=== PATIENT | female | born 1995 | race American Indian/Alaskan Native ===

== ENCOUNTER 2022-02-23 22:39 | Emergency (ER) | payer SELFPAY ==
[2022-02-24 00:08] LABS: Bilirubin,Urine NEG (Negative); Blood,Urine NEG (Negative); Color,Urine Yellow (Yellow); Protein,Urine <15 mg/dL mg/dL (Negative)
[2022-02-24 00:17] LABS: RBC,Urine < 1.0 /HPF (0.0-6.0); WBC,Urine < 1.0 /HPF (0.0-6.0)
[2022-02-24 00:18] LABS: HCG Qualitative,Urine Positive (Negative)
[2022-02-24] MEDS ORDERED: ONDANSETRON 4 MG/2 ML INJ IV ONE (01:33)
[2022-02-24] MEDS ORDERED: MORPHINE 4 MG/1 ML INJ IV ONE (01:33)
[2022-02-24 03:02] LABS: Basophils % (Auto) 0.4 % (0.0-1.8); Eosinophils # (Auto) 0.2 K/mm3 (0.0-0.4); Eosinophils % (Auto) 1.8 % (0.0-4.3); Hematocrit 37.9 % (30.3-42.9); Hemoglobin 12.2 gm/dl (10.1-14.3); Mean Corpuscular HGB Conc 32 % (30-34); Mean Corpuscular Volume 86 fl (79-97); Monocytes # (Auto) 0.9 K/mm3 (0.0-0.8); Monocytes % (Auto) 10.2 % (0.0-7.3); Platelet Count 273 K/mm3 (140-440); Red Cell Distribution Width 13.8 % (13.2-15.2)
[2022-02-24 03:37] LABS: Alanine Aminotransferase 16 units/L (7-56); Albumin 3.9 g/dL (3.9-5); Blood Urea Nitrogen 6 mg/dL (7-17); Calcium 9.5 mg/dL (8.4-10.2); Hemolysis Index 5
[2022-02-24 03:39] LABS: BUN/Creatinine Ratio 12
--- NOTE | 2022-02-24 06:22 | Vascular Lab Report ---
DUPLEX DOPPLER LOWER EXTREMITY VEINS, BILATERAL INDICATION / CLINICAL INFORMATION: DYSPNEA. TECHNIQUE: Duplex doppler imaging was performed through the veins of both lower extremities using tong ous compression and other maneuvers. COMPARISON: None available. FINDINGS: RIGHT COMMON FEMORAL VEIN: Negative. RIGHT FEMORAL VEIN: Negative. RIGHT POPLITEAL VEIN: Negative. RIGHT CALF VEINS: Negative. LEFT COMMON FEMORAL VEIN: Negative. LEFT FEMORAL VEIN: Negative. LEFT POPLITEAL VEIN: Negative. LEFT CALF VEINS: Negative. ADDITIONAL FINDINGS: None. IMPRESSION: 1. No sonographic evidence for DVT in either lower extremity. Signer Name: Josue Olson MD Signed: 02/24/2022 6:18 AM Workstation Name: [id number]
--- NOTE | 2022-02-24 06:25 | Ultrasound Report ---
ULTRASOUND OBSTETRIC COMPLETE INDICATION / CLINICAL INFORMATION: Pelvic pain: 15 weeks gestation. TECHNIQUE: Transabdominal. COMPARISON: None available. FINDINGS: NUMBER: Single PRESENTATION: breech PLACENTA: posterior and free of the os. MATERNAL ADNEXA: No significant abnormality. AMNIOTIC FLUID VOLUME: normal AMNIOTIC FLUID INDEX (AMBAR) in cm (if measured): 14.2 ANATOMY: organs (including the bladder, stomach, kidneys, heart, umbilical cord, diaphragm, cord inserti on, spine and intracranial structures) are visualized and show no significant abnormality with the fo llowing exception(s): The diaphragm and three-vessel cord/cord insertion are not well seen. MEASUREMENTS: - Biparietal Diameter = 3.58 cm = 17.0 weeks.days - Head Circumference = 12.83 cm = 16.4 weeks.days - Abdominal Circumference = 11.62 cm = 17.3 weeks.days - Femur Length = 2.20 cm = 16.4 weeks.days - Estimated Weight (in grams, if calculated): 175 - Heart Rate (beats per minute): 148 ADDITIONAL FINDINGS: None. PERCENTILE ESTIMATED WEIGHT (if calculated): 94 AVERAGE ULTRASOUND AGE (AUA) in weeks.days = 16.6 IMPRESSION: 1. Single intrauterine with AUA of 16.6 weeks.days 2. No significant sonographic abnormality. Signer Name: Josue Olson MD Signed: 02/24/2022 6:21 AM Workstation Name: [id number]
--- NOTE | 2022-02-24 07:02 | Emergency Department Report ---
ED General Adult HPI - General Chief complaint: Chest Pain Stated complaint: CHEST PAIN/15 WEEKS PREG LOWER ABDOMINAL PAIN Source: patient Mode of arrival: Ambulatory Limitations: No Limitations - History of Present Illness Initial comments: Patient is a A1 27-year-old -[place] female with no past medical history presents to the ED with complaint of acute onset persistent intermittent chest pain and tightness as well as lower abdominal pain for [address] ates that the pain in the chest is especially worse with inspiration or movement. Patient states that she recently traveled from [place] 2 weeks ago and that she plans to relocate fully in this area and not going back to [place]. Patient denies vaginal bleeding, vaginal discharge, dysuria, urinary frequency and urgency, nausea and vomiting, fever, chills, cough, sore throat, or change in vision. MD Complaint: Diffuse lower abdominal pain and chest pain -: Sudden, days(s) (2) Location: chest, abdomen (Low abdominal pain, 15 weeks gestation) Radiation: non-radiation Severity scale (0 -10): 10 Quality: aching, sharp Consistency: constant Improves with: none Worsens with: movement, other (The penetration) Associated Symptoms: denies other symptoms, chest pain, loss of appetite, malaise, nausea/vomiting, shortness of breath. denies: confusion, cough, diaphoresis, fever/chills, headaches, rash, seizure, syncope, weakness, other Treatments Prior to Arrival: none - Related Data Previous Rx's Medication Instructions Recorded Last Taken Type Acetaminophen [Tylenol] 500 mg PO Q6HR PRN #30 tablet 02/24/22 Unknown Rx Allergies Allergy/AdvReac Type Severity Reaction Status Date / Time No Known Allergies Allergy Unverified 02/23/22 22:46 ED Review of Systems ROS: Stated complaint: CHEST PAIN/15 WEEKS PREG LOWER ABDOMINAL PAIN Other details as noted in HPI Constitutional: denies: chills, fever Eyes: denies: eye pain, eye discharge, vision change ENT: denies: ear pain, throat pain Respiratory: denies: cough, shortness of breath, wheezing Cardiovascular: chest pain (Diffuse chest pain). denies: palpitations Endocrine: no symptoms reported Gastrointestinal: abdominal pain (Diffuse low abdominal pain). denies: nausea, vomiting, diarrhea, constipation, hematemesis Genitourinary: denies: urgency, dysuria, discharge Musculoskeletal: denies: back pain, joint swelling, arthralgia Skin: denies: rash, lesions Neurological: denies: headache, weakness, paresthesias Psychiatric: denies: anxiety, depression Hematological/Lymphatic: denies: easy bleeding, easy bruising ED Past Medical Hx - Past Medical History Previous Medical History?: No - Surgical History Past Surgical History?: Yes Additional Surgical History: Tonsillectomy - Medications Home Medications: Home Medications Medication Instructions Recorded Confirmed Last Taken Type Acetaminophen [Tylenol] 500 mg PO Q6HR PRN #30 tablet 02/24/22 Unknown Rx ED Physical Exam - General Limitations: No Limitations General appearance: alert, in no apparent distress - Head Head exam: Present: atraumatic, normocephalic, normal inspection - Eye Eye exam: Present: normal appearance, PERRL, EOMI Pupils: Present: normal accommodation - ENT ENT exam: Present: normal exam, normal orophraynx, mucous membranes moist, TM's normal bilaterally, normal external ear exam - Neck Neck exam: Present: normal inspection, full ROM. Absent: tenderness - Respiratory Respiratory exam: Present: normal lung sounds bilaterally, chest wall tenderness (Palpable diffuse chest wall tenderness). Absent: respiratory distress, wh eezes, rales, rhonchi - Cardiovascular Cardiovascular Exam: Present: regular rate, normal rhythm, normal heart sounds. Absent: systolic murmur, diastolic murmur, rubs, gallop - GI/Abdominal GI/Abdominal exam: Present: soft, tenderness (Palpable diffuse suprapubic tenderness), normal bowel sounds. Absent: guarding, rebound - Extremities Exam Extremities exam: Present: normal inspection, full ROM, normal capillary refill. Absent: tenderness, pedal edema, joint swelling - Back Exam Back exam: Present: normal inspection, full ROM, tenderness (Palpable lumbosacral paraspinal musculoskeletal tenderness), muscle spasm, paraspinal tenderness. Absent: CVA tenderness (L), vertebral tenderness - Neurological Exam Neurological exam: Present: alert, oriented X3, CN II-XII intact, normal gait, reflexes normal - Psychiatric Psychiatric exam: Present: normal affect, normal mood - Skin Skin exam: Present: warm, dry, intact, normal color. Absent: rash ED Course Vital Signs 02/23/22 02/23/22 22:40 22:48 Temperature 98.2 F 97.9 F Pulse Rate 98 H 94 H Respiratory 16 16 Rate Blood Pressure 133/80 Blood Pressure 116/78 [Left] O2 Sat by Pulse 100 100 Oximetry ED Medical Decision Making - Lab Data Result diagrams: 02/24/22 01:39 02/24/22 01:39 - EKG Data EKG shows normal: sinus rhythm Rate: normal - EKG Data Interpretation: normal EKG 02/24/22 07:11 The EKG shows normal sinus rhythm with a ventricular rate of [address] or T wave abnormalities. - Radiology Data Radiology results: report reviewed, image reviewed [facility] [address] [place] [address] Ultrasound Report Signed Patient: LOWELL VEGA MR# : [id number] : 1995 Acct:[id number] Age/Sex: 27 / F ADM Date: 02/23/22 Loc: ED Attending Dr: Ordering Physician: BARRETT VALDEZ Date of Service: 02/24/22 Procedure(s): US OB >= 14 weeks Fetus Accession Number(s): [id number] cc: BARRETT VALDEZ ULTRASOUND OBSTETRIC COMPLETE INDICATION / CLINICAL INFORMATION: Pelvic pain: 15 weeks gestation. TECHNIQUE: Transabdominal. COMPARISON: None available. FINDINGS: NUMBER: Single PRESENTATION: breech PLACENTA: posterior and free of the os. MATERNAL ADNEXA: No significant abnormality. AMNIOTIC FLUID VOLUME: normal AMNIOTIC FLUID INDEX (AMBAR) in cm (if measured): 14.2 ANATOMY: organs (including the bladder, stomach, kidneys, heart, umbilical cord, diaphragm, cord insertion, spine and intracranial structures) are visualized and show no significant abnormality with the following exception(s): The diaphragm and three-vessel cord/cord insertion are not well seen. MEASUREMENTS: - Biparietal Diameter = 3.58 cm = 17.0 weeks.days - Head Circumference = 12.83 cm = 16.4 weeks.days - Abdominal Circumference = 11.62 cm = 17.3 weeks.days - Femur Length = 2.20 cm = 16.4 weeks.days - Estimated Weight (in grams, if calculated): 175 - Heart Rate (beats per minute): 148 ADDITIONAL FINDINGS: None. PERCENTILE ESTIMATED WEIGHT (if calculated): 94 AVERAGE ULTRASOUND AGE (AUA) in weeks.days = 16.6 IMPRESSION: 1. Single intrauterine with AUA of 16.6 weeks.days 2. No significant sonographic abnormality. Signer Name: Josue Olson MD Signed: 02/24/2022 6:21 AM Workstation Name: [id number] Transcribed By: [place] Dictated By: Josue Olson MD Electronically Authenticated By: Josue Olson MD Signed Date/Time: 02/24/22620 DD/ 7 TD/TT: [facility] [address] [place] [address] Vascular Lab Report Signed Patient: LOWELL VEGA MR# : [id number] : 1995 Acct:[id number] Age/Sex: 27 / F ADM Date: 02/23/22 Loc: ED Attending Dr: Ordering Physician: BARRETT VALDEZ Date of Service: 02/24/22 Procedure(s): VL venous duplex LE BILAT Accession Number(s): [id number] cc: BARRETT VALDEZ DUPLEX DOPPLER LOWER EXTREMITY VEINS, BILATERAL INDICATION / CLINICAL INFORMATION: DYSPNEA. TECHNIQUE: Duplex doppler imaging was performed through the veins of both lower extremities using venous compression and other maneuvers. COMPARISON: None available. FINDINGS: RIGHT COMMON FEMORAL VEIN: Negative. RIGHT FEMORAL VEIN: Negative. RIGHT POPLITEAL VEIN: Negative. RIGHT CALF VEINS: Negative. LEFT COMMON FEMORAL VEIN: Negative. LEFT FEMORAL VEIN: Negative. LEFT POPLITEAL VEIN: Negative. LEFT CALF VEINS: Negative. ADDITIONAL FINDINGS: None. IMPRESSION: 1. No sonographic evidence for DVT in either lower extremity. Signer Name: Josue Olson MD Signed: 02/24/2022 6:18 AM Workstation Name: [id number] Transcribed By: [place] Dictated By: Josue Olson MD Electronically Authenticated By: Josue Olson MD Signed Date/Time: 02/24/22617 DD/ 7 TD/TT: - Medical Decision Making This is a A1 27-year-old -[place] female with no past medical history presents to the ED with complaint of acute onset persistent intermittent chest pain and tightness as well as lower abdominal pain for 2 days. Patient states that the pain in the chest is especially worse with inspiration or movement. Patient states that she recently traveled from [place] 2 weeks ago and that she plans to relocate fully in this area and not going back to [place]. In the ED, patient is alert and oriented x3 and is not in any distress. Patient was treated in the ED for pain and EKG shows normal sinus rhythm with a ventricular rate of 87 bpm. All lab test results were reviewed and are all nonactionable. Pelvic ultrasound showed a single intrauterine with AUA of 16.6 weeks.days, with a heart rate of 148 bpm, and no other significant sonographic abnormality. I therefore discussed the patient's case with the ED attending physician Dr. Leonard who advised that bilateral lower extremity Doppler ultrasound be performed to rule out DVT without necessarily doing a CTA chest. Therefore bilateral lower extremity Doppler ultrasound showed no evidence of DVT. Patient will discharge home on medications and advised to follow-up with her [employer] physician in 7 to 10 days for reevaluation or return to the ED immediately if symptoms get worse. - Differential Diagnosis UTI; muscle strain; round ligament pain; anxiety; ACS; PE; DVT Critical care attestation.: If time is entered above; I have spent that time in minutes in the direct care of this critically ill patient, excluding procedure time. ED Disposition Clinical Impression: Acute nonspecific chest pain with low risk of coronary artery disease, Abdominal pain during in second trimester, Muscle strain of anterior chest wall Disposition: HOME / SELF CARE / HOMELESS Is pt being admited?: No Does the pt Need Aspirin: No Condition: Stable Instructions: Chest Pain (ED), Muscle Strain, [id number], Nonspecific Chest Pain, Adult, [id number], Chest Wall Pain, Jpwl-[id number]-Cint, Abdominal Pain During , [id number] Additional Instructions: All lab test results were reviewed and are all nonactionable. Bilateral Doppler lower extremity ultrasound showed no sonographic evidence of DVT. Pelvic ultrasound showed a single live intrauterine of approximately 16 weeks and 6 days with a heart rate of 140 beats a minute. The chest pain is likely musculoskeletal, since all lab test results were unremarkable. Therefore take Tylenol as needed for pain and follow-up with the [employer] physician in 5 to 7 days for reevaluation or return to the ED immediately if symptoms get worse. Prescriptions: Acetaminophen [Tylenol] 500 mg PO Q6HR PRN #30 tablet PRN Reason: Pain , Severe (7-10) Referrals: RAKESH MARSHALL MD [Staff Physician] - 3-5 Days Time of Disposition: 07:12 Print Language: LUXEMBOURGISH
[2022-02-24 09:26] VITALS: BP 130/85
--- NOTE | 2022-02-25 10:01 | Electrocardiograph Report ---
[facility] Test Date: 2022-02-23 Test Time: 22:51:09 Pat Name: LOWELL VEGA Department: Room: Gender: F Manager Social Services: NURSE : 1995 Requested By: MASTER GUSTAFSON Order Number: [id number] Reading MD: James Nation Measurements Intervals [place] Rate: 87 P: 59 MT: 145 QRS: 65 QRSD: 76 T: 21 QT: 344 QTc: 414 Interpretive Statements Sinus rhythm No previous ECG available for comparison Electronically Signed On 02-25-2022 10:00:49 EDT by James Nation
== END 2022-02-24 09:25 | disposition home or self-care (01) ==
LOC: ED 22:39
DX: O26.892 Other specified pregnancy related conditions, second trimester (principal); S29.011A Strain of muscle and tendon of front wall of thorax, initial encounter; R07.89 Other chest pain; R10.30 Lower abdominal pain, unspecified; Z3A.15 15 weeks gestation of pregnancy; X58.XXXA Exposure to other specified factors, initial encounter; Y93.89 Activity, other specified; Y92.89 Other specified places as the place of occurrence of the external cause; Y99.8 Other external cause status
CPT/HCPCS: 36415; 76805; 80053; 81001; 81025; 84484; 85025; 93005; 93970; 96374; 96375; 99284; J2270; J2405